=== PATIENT | male | born 1980 | race African-American/Black ===

== ENCOUNTER 2016-05-04 23:00 | Emergency (ER) | payer OTHER ==
[~2016-05-04] VITALS: Ht 165.1 cm; Wt 78.2 kg
[~2016-05-04 23:00] MED LIST: CHLORDIAZEPOXID25 MG PO; TYLENOL REGULA325 MG PO
[2016-05-04 23:43] LABS: HEMATOCRIT 46.3 % (38.0-50.0); MCH 31.8 PG (29.0-34.0); MCHC 35.2 G/DL (30.0-36.0); MCV 90.4 FL (86-99); MEAN PLAT.VOLUME 11.5 uM^3 (9.0-12.4); PLATELET COUNT 183 K/uL (156-360); RBC DIS.WIDTH-SD 42.6 % (39-53); RED BLOOD COUNT 5.12 M/uL (4.00-5.50); WHITE BLOOD COUNT 4.5 K/uL (4.1-10.2)
[2016-05-04 23:44] LABS: CHLORIDE 104 mEq/L (99-109); POTASSIUM 3.7 mEq/L (3.7-5.4); SODIUM 139 mEq/L (136-147)
[2016-05-04 23:45] LABS: GLUCOSE 114 mg/dL (70-99)
[2016-05-04 23:47] LABS: ANION GAP 14 MEQ/L (2-14)
[2016-05-04 23:49] LABS: GFR ESTIMATE (CALCULATED) > 59 mL/min/
[2016-05-04 23:50] LABS: UREA NITROGEN (BUN) 12 mg/dL (9-23)
[2016-05-05] MEDS ORDERED: VENTOLIN HFA18 GM IH (05:49)
[2016-05-05] MEDS ORDERED: AZITHROMYCIN250 MG PO (05:49)
[2016-05-05] MEDS ORDERED: DELTASONE20 M1 PO (05:49)
[2016-05-05 06:12] VITALS: BP 118/78
== END 2016-05-05 06:15 | disposition home or self-care (01) ==
LOC: EME 23:00
DX: J20.9 Acute bronchitis, unspecified (principal); R42 Dizziness and giddiness; F17.200 Nicotine dependence, unspecified, uncomplicated
CPT/HCPCS: 71020; 80048; 85027; 93005; 94640; 99281; 99284; J7512